=== PATIENT | male | born 1970 | race Caucasian/White ===

== ENCOUNTER 2022-09-04 10:35 | Day surgery (SDC) | payer BC ==
[2022-09-04] MEDS ORDERED: Sodium Chloride 0.9% 2.5 ML Syringe FLUSH PRN (10:41)
[2022-09-04] MEDS ORDERED: Sodium Chloride 0.9% 1,000 ML IV ONE (10:41)
[2022-09-04] MEDS ORDERED: Sodium Chloride 0.9% 10 ML Syringe FLUSH PRN (10:41)
[2022-09-04] MEDS ORDERED: Ketorolac 30 MG/ML SDV IVPUSH ONE (10:51)
[2022-09-04] MEDS ORDERED: Ondansetron 4 MG/2 ML SDV IVPUSH ONE (10:51)
[2022-09-04 11:45] LABS: CARBON DIOXIDE,CO2 25.9 mmol/L (21.0-32.0); POTASSIUM,K 4.1 mmol/L (3.5-5.1)
[2022-09-04] MEDS ORDERED: Iopamidol 755 MG/ML 500 ML Multipack Bottle IVPUSH ONE (12:00)
[2022-09-04] MEDS ORDERED: Morphine 4 MG/ML Syringe IVPUSH ONE ×2 (12:09→13:27)
[2022-09-04] MEDS ORDERED: Piperacillin/Tazobactam 3.375 GM in Sodium Chloride 0.9% 50 ML IV ONE (13:05)
[2022-09-04] MEDS ORDERED: Sodium Chloride 0.9% 50 ML ONE (13:26)
[2022-09-04] MEDS ORDERED: Bupivacaine 0.5% 30 ML SDV ONE (14:20)
[2022-09-04] MEDS ORDERED: HYDROmorphone 1 MG/ML Syringe IVPUSH PRN (14:24)
[2022-09-04] MEDS ORDERED: Dexamethasone 4 MG/ML 5 ML MDV ONE (14:24)
[2022-09-04] MEDS ORDERED: Albuterol 0.083% 2.5 MG/3 ML Neb Soln NEB PRN (14:24)
[2022-09-04] MEDS ORDERED: Naloxone 0.4 MG/ML SDV IVPUSH PRN (14:24)
[2022-09-04] MEDS ORDERED: Ondansetron 4 MG/2 ML SDV IVPUSH PRN (14:24)
[2022-09-04] MEDS ORDERED: fentaNYL 50 MCG/ML SDV IVPUSH PRN (14:24)
[2022-09-04] MEDS ORDERED: Rocuronium Bromide 50 MG/5 ML Syringe ONE (14:24)
[2022-09-04] MEDS ORDERED: Morphine 2 MG/ML SYRINGE IVPUSH PRN ×2 (14:24→16:14)
[2022-09-04] MEDS ORDERED: Sugammadex Sodium 200 MG/2 ML VIAL ONE (14:24)
[2022-09-04] MEDS ORDERED: Lidocaine 2% 5 ML SDV ONE (14:24)
[2022-09-04] MEDS ORDERED: Metoclopramide 10 MG/2 ML SDV IVPUSH PRN (14:24)
[2022-09-04] MEDS ORDERED: Ketorolac 30 MG/ML SDV ONE (14:24)
[2022-09-04] MEDS ORDERED: fentaNYL 100 MCG/2 ML SDV ONE (14:25)
[2022-09-04] MEDS ORDERED: Propofol 200 MG/20 ML SDV ONE (14:25)
[2022-09-04] MEDS ORDERED: Ropivacaine 0.5% 5 MG/ML 30 ML SDV ONE (14:37)
[2022-09-04] MEDS ORDERED: EPINEPHRINE ONE (14:37)
[2022-09-04] MEDS ORDERED: BUPIVACAINE ONE (14:37)
[2022-09-04] MEDS ORDERED: Morphine Sulfate 10mg/ml SDV ONE (14:51)
[2022-09-04] MEDS ORDERED: cefOXitin 1 GM Vial ONE (15:23)
[2022-09-04] MEDS ORDERED: Acetaminophen 325 MG Tab PO PRN (16:11)
[2022-09-04] MEDS ORDERED: Acetaminophen/HYDROcodone 325-5 MG Tab PO PRN ×2 (16:11→16:18)
[2022-09-04] MEDS ORDERED: Lactated Ringers 1,000 ML IV SCH (16:15)
[2022-09-04] MEDS: Lactated Ringers 1,000 ML IV SCH (17:02)
[2022-09-04] MEDS: Piperacillin/Tazobactam 3.375 GM in Sodium Chloride 0.9% 50 ML IV SCH (20:26)
[2022-09-05] MEDS: Piperacillin/Tazobactam 3.375 GM in Sodium Chloride 0.9% 50 ML IV SCH ×3 (01:14→14:28)
[2022-09-05] MEDS: Lactated Ringers 1,000 ML IV SCH (01:17)
== END 2022-09-05 17:15 | disposition home or self-care (01) ==
LOC: MW.ED 10:35 → MW.SDS 14:07 → MW.MS 14:10 → MW.SDS 09-05 17:15
PROVIDERS: ATTEND Surgery
DX: K35.30 Acute appendicitis with localized peritonitis, without perforation or gangrene (principal); K76.0 Fatty (change of) liver, not elsewhere classified; R91.1 Solitary pulmonary nodule; Z90.49 Acquired absence of other specified parts of digestive tract; Z98.890 Other specified postprocedural states; Z20.822 Contact with and (suspected) exposure to COVID-19
CPT/HCPCS: 36415; 44970; 74177; 80053; 81003; 83690; 85025; 87635; 96361; 96365; 96375; 96376; 99285; A9270; J0131; J0694; J1100; J1885; J2270; J2405; J2543; J2704; J2795; J3010; J3490; J7030; J7050; J7120; Q9967; 00840; 64488; 99284; U0002